=== PATIENT | female | born 1975 | race Caucasian/White ===

== ENCOUNTER 2021-09-16 09:14 | Emergency (ER) | payer OTHER, SELFPAY ==
--- NOTE | ~2021-09-16 | XR_ITS ---
EXAMINATION: XR CHEST CLINICAL INFORMATION: Cough. COMPARISON: None. TECHNIQUE: 2 views of the chest were obtained. FINDINGS: No significant abnormality is noted involving the heart, lungs, mediastinum, bony thorax or soft tissues. XR/XR chest 2V IMPRESSION: Unremarkable examination.
[2021-09-16 09:41] VITALS: BP 154/94; PULSE 93; RESP 19; TEMP 36.6; O2SAT 98; BMI 39.0
[2021-09-16 10:22] LABS: COVID-19 Test Negative (Negative); IDNOW Serial# 9DD0AD1C
--- NOTE | 2021-09-16 11:17 | ED.URI ---
HPI - URI/Sore Throat General Chief Complaint: Upper Respiratory Symptoms Stated Complaint: dry cough Time Seen by Provider: 09/16/21 11:17 Source: patient Mode of arrival: ambulatory Limitations: no limitations History of Present Illness HPI Narrative: For about a week she has had a cough and feels that she has pneumonia. No fever. No wheezing MD elicited complaint: cough Onset (ago): week(s) Consistency: intermittent Severity: mild Exacerbating factors: nothing Relieving factors: nothing Associated symptoms: denies other symptoms Related Data Previous Rx's Medication Instructions Recorded azithromycin 250 mg tablet See Rx Instructions .ROUTE 09/16/21 .COMPLEX #6 tab [id number] 2.5 20 ml PO Q4H PRN #118 ml 09/16/21 mg-5 mg-50 mg/5 mL oral liquid (Robitussin Cough and Cold CF) Allergies Allergy/AdvReac Type Severity Reaction Status Date / Time No Known Allergies Allergy Verified 09/16/21 11:31 Review of Systems Constitutional: Constitutional: Reports no additional constitutional complaints Eyes: Eyes: Reports no additional eye complaints ENT: Denies dizziness Cardiovascular: Cardiovascular: Reports no additional cardiovascular complaints Respiratory: Respiratory: Reports as per HPI Gastrointestinal: Gastrointestinal: Reports no additional gastrointestinal complaints Genitourinary: Genitourinary: Reports no additional female genitourinary complaints Musculoskeletal: Musculoskeletal: Reports no additional musculoskeletal complaints Integumentary/Breasts: Skin/Breast: Denies rash Neurologic: Reports system reviewed and no additional complaints, except as documented, Denies dizziness and Denies Sensory deficit (Neuro) Psychiatric: Psychiatric: Denies anxiety FOR[facility]LY [facility], [facility] Past Medical History Medical History HTN (hypertension) Social History Social History Advance Directives: No Advance Directives Information Provided: No Patient : No Physical Exam Vital Signs: Vital Signs: Last Vital Signs Temp 98 F 09/16/21 09:41 Pulse 93 09/16/21 09:41 Resp 19 09/16/21 09:41 BP 154/94 H 09/16/21 09:41 Pulse Ox 98 09/16/21 09:41 BMI result Body Mass Index 39.0 Const: General: healthy appearing Nutritional Appearance: average body habitus Orientation/consciousness: oriented to person and patient oriented x3 Limitations: no limitations HENMT: Head: Yes normal to inspection Ears: external ears normal General nose exam: Normal external nose present Mouth: Normal oral and palatal mucosa present and oropharynx normal Throat: Yes posterior oropharynx normal Eyes: General: appearance normal, both eyes and all related structures Neck: Other: supple Neck: Yes normal visual inspection Chest: Chest palpation & inspection: normal inspection of the chest Resp: Other: some rhonchi bilaterally with green phlegm Cardio: Jugular venous distension: no JVD Rate: regular rate Rhythm: regular rhythm Heart sounds: S1 normal heart sound present and S2 normal heart sound present GI: Inspection: Yes normal to inspection Palpation (GI): Soft to palpation, nontender and No hepatosplenomegaly present Auscultation: normal bowel sounds : General: Yes no CVA tenderness Back/Spine/Pelvis: Back: no CVA tenderness Skin: General skin exam: no rashes or lesions noted Neuro: General: oriented to person and patient oriented x3 Cranial nerves: Yes CN's II-XII intact bilaterally Motor exam (neuro): 5/5 motor strength present throughout Sensory Exam: No Sensory deficit (Neuro) Extrem: General: Yes normal to inspection Psych: Appearance: grossly normal Course Reevaluation(s) Reevaluation #1: patient with shortness of breath for weeks now with green sputum will place on a zpack Time: 11:39 MDM - URI/Sore Throat Lab Data Labs: Lab Results 09/16/21 Range/Units 09:44 COVID-19 (ELISE) Negative (Negative) COVID-19 Clin Com See Note Imaging Data Chest x-ray: Radiologist's impression: FINDINGS: No significant abnormality is noted involving the heart, lungs, mediastinum, bony thorax or soft tissues. XR/XR chest 2V IMPRESSION: Unremarkable examination Discharge Plan Discharge Clinical Impression: Bronchitis, Upper respiratory infection Patient Disposition: Home, Self-Care Instructions: Acute Bronchitis (ED) Prescriptions: New azithromycin 250 mg tablet See Rx Instructions .ROUTE .COMPLEX Qty: 6 RF: 0 Robitussin Cough and Cold CF 2.5-5-50 mg/5 mL liquid 20 ml PO Q4H PRN (Reason: cough) Qty: 118 RF: 0 Referrals: Richelle Cary MD [Primary Care Provider] - 1 week
--- NOTE | 2021-09-16 11:57 | PC.NURSE ---
PT EVALUATED BY DR BUSBY. PT AWARE AND AGREEABLE TO ED CARE PLAN. PT AWAKE, ALERT AND ORIENTED X 3. SKIN WARM AND DRY. RESP UNLABORED. SPEAKING IN FULL CLEAR SENTENCES.
== END 2021-09-16 11:47 | disposition home or self-care (01) ==
PROVIDERS: Emergency Provider Emergency Medicine; PCP Family Medicine
DX: J40 Bronchitis, not specified as acute or chronic (principal); J06.9 Acute upper respiratory infection, unspecified; Z20.822 Contact with and (suspected) exposure to COVID-19
CPT/HCPCS: 71046; 87635; 99283

== ENCOUNTER 2023-04-09 11:00 | Outpatient (AMB) | payer OTHER, SELFPAY ==
[2023-04-09 11:11] VITALS: BP 118/78; PULSE 93; TEMP 36.8; O2SAT 97; BMI 38.2
--- NOTE | 2023-04-09 11:11 | A.OFFVIS_ITS ---
Intake Vital Signs 04/09/23 11:11 Height 5 ft 5 in Weight 229 lb 4.492 oz BMI 38.2 BP 118/78 Blood Pressure Location Lt brachial Position Sitting Pulse 93 Pulse Source Pulse Oximeter Temp 98.2 F Pulse Oximetry (%) 97 Oxygen Delivery Method Room Air Intake Visit Reasons: RA Intake Note: Pt presents in office for RA Skip Locator Required: No Allergies No Known Allergies Allergy (Verified 04/09/23 11:15) Medication List - Last Reconciled 04/09/23 by Nicci Ceballos MD diclofenac sodium 1% grams topical QID PRN hydrochlorothiazide 25 mg PO DAILY lisinopril 5 mg PO DAILY melatonin 5 mg PO BEDTIME PRN metformin ER 500 mg PO DAILY HPI HPI Comments History of Present Illness Details This is a 48-year-old female who presents for evaluation of multiple donte int pain. The condition started back in September of 2022 when the patient noticed joint pain and stiffness affecting her left shoulder, right elbow, both wrists, intermittently associated with swelling. The pain and swelling with amanda in severity. She had this pain for 6-7 months and over the last 3-4 weeks it has been slowly improving. She denied any prior respiratory or GI infection. Today patient denies any symptoms. She denies any joint pain. Denies any history of DVT/PE. She is unaware of any family history of autoimmune rheumatic disease. [facility] Medical History (Updated 04/09/23 @ 13:15 by Nicci Ceballos MD) HTN (hypertension) Hyperglycemia Newly diagnosed diabetes Obstructive sleep apnea syndrome Rheumatoid factor positive Surgical History History of total hysterectomy Hx of LASIK Family History Mother Cancer Social History Alcohol intake: never Patient Tobacco Use Status: Never used Tobacco Review of Systems [facility] [place] Denies arthralgias Skin/Breast Denies rash Physical Exam Vital Signs: Last Vital Signs Temp 98.2 F 04/09/23 11:11 Pulse 93 04/09/23 11:11 BP 118/78 04/09/23 11:11 Pulse Ox 97 04/09/23 11:11 Oxygen Delivery Method Room Air 04/09/23 11:11 BMI result Body Mass Index 38.2 Const General: cooperative, healthy appearing and comfortable Nutritional Appearance: obese morbidly obese Orientation/consciousness: patient oriented x3 Limitations: no limitations HEENT Head: Yes normocephalic and Yes atraumatic Resp Effort & Inspection: normal respiratory effort and able to speak in complete sentences Auscultation: clear to auscultation bilaterally Cardio Rate: regular rate Rhythm: regular rhythm GI Inspection: No distended Palpation (GI): Soft to palpation and nontender Skin General skin exam: no rashes or lesions noted Neuro General: patient oriented x3 Extrem Other: No active synovitis. No swollen or tender joints Normal range of motion of shoulders, elbows, hands, wrists Normal nailfold capillaroscopy Assessment & Plan Assessment & Plan (1) Inflammatory arthritis: Code(s): M19.90 - Unspecified osteoarthritis, unspecified site Plan: This is a 48-year-old female who presents for evaluation of multiple joint pain that started in September 2022 at lasted for 6 months then self-resolved. Clinical picture consistent with an inflammatory arthritis, potentially RA versus psoriatic arthritis. Patient doing well today however with no Will check x-rays of involved joints. Check labs before next visit Plan I spent 46 minutes reviewing patient's chart, evaluating patient, ordering diagnostic workup, counseling patient and documenting in the chart Orders: Orders XR foot LT min 3V Today M06.9 - Rheumatoid arthritis, unspecified XR foot RT min 3V Today M06.9 - Rheumatoid arthritis, unspecified XR hand wrist LT Today M06.9 - Rheumatoid arthritis, unspecified XR hand wrist RT Today M06.9 - Rheumatoid arthritis, unspecified XR shoulder LT min 2V Today M06.9 - Rheumatoid arthritis, unspecified XR shoulder RT min 2V Today M06.9 - Rheumatoid arthritis, unspecified Cyclic Citrullinated Peptide 2 Months M06.9 - Rheumatoid arthritis, unspecified Comprehensive Met. Panel 2 Months M06.9 - Rheumatoid arthritis, unspecified C Reactive Protein 2 Months M06.9 - Rheumatoid arthritis, unspecified Rheumatoid Factor 2 Months M06.9 - Rheumatoid arthritis, unspecified Complete Blood Count Auto Diff 2 Months M06.9 - Rheumatoid arthritis, unspecified Erythrocyte Sedimentation Rate 2 Months M06.9 - Rheumatoid arthritis, unspecified JUDE Reflex Titer and Pattern 2 Months M06.9 - Rheumatoid arthritis, unspecified Immunofixation Pnl, Serum 2 Months M06.9 - Rheumatoid arthritis, unspecified Protein Electrophoresis, Serum 2 Months M06.9 - Rheumatoid arthritis, unspecified Hepatitis A,B,C Profile 2 Months Z11.59 - Encounter for screening for other viral diseases T Spot TB 2 Months Z11.7 - Encounter for testing for latent tuberculosis infection Coding Level of Care Code New Pt Level 4 (38145) Diagnoses Inflammatory arthritis M19.90
== END 2023-04-09 11:57 | disposition home or self-care (01) ==
PROVIDERS: PCP Family Medicine; Visit Provider Student in an Organized Health Care Education/Training Program
DX: M19.90 Unspecified osteoarthritis, unspecified site (principal)
CPT/HCPCS: 99204

== ENCOUNTER 2023-04-09 11:00 | Outpatient (REF) | payer OTHER, SELFPAY ==
--- NOTE | ~2023-04-09 | XR_ITS ---
EXAMINATION: XR foot LT min 3V, XR foot RT min 3V CLINICAL INFORMATION: Rheumatoid arthritis COMPARISON: None. TECHNIQUE: 3 views of the right foot. 3 views of the left foot. FINDINGS: Right foot: No fracture or dislocation. Alignment is maintained. Joint spaces are maintained. No osseous erosions. No ankle joint effusion. Soft tissues appear unremarkable. Left foot: No fracture or dislocation. Alignment is maintained. Joint spaces are maintained. No osseous erosions. No ankle joint effusion. The soft tissues are unremarkable. XR/XR foot LT min 3V IMPRESSION: Normal appearance of both feet. No osseous erosions.
--- NOTE | ~2023-04-09 | XR_ITS ---
EXAMINATION: XR hand wrist LT, XR hand wrist RT CLINICAL INFORMATION: Rheumatoid arthritis COMPARISON: None. TECHNIQUE: 3 views of the right hand with scaphoid view. 3 views of the left hand with scaphoid view. FINDINGS: Right hand/wrist: No fracture or dislocation. Carpal rows are well aligned. Negative ulnar variance of 0.3 cm. Joint spaces are maintained throughout the hand. No osseous erosions. No subluxation. Soft tissues appear unremarkable. Left hand/wrist: No fracture or dislocation. Carpal rows are well aligned. Negative ulnar variance of 0.2 cm. Cyst formation noted in the scaphoid. Joint spaces maintained throughout the hand. No osseous erosions. No subluxation. The soft tissues are unremarkable. XR/XR hand wrist RT IMPRESSION: No acute abnormality. No osseous erosions. Negative ulnar variance. Cyst formation in the left scaphoid.
--- NOTE | ~2023-04-09 | XR_ITS ---
EXAMINATION: XR hand wrist LT, XR hand wrist RT CLINICAL INFORMATION: Rheumatoid arthritis COMPARISON: None. TECHNIQUE: 3 views of the right hand with scaphoid view. 3 views of the left hand with scaphoid view. FINDINGS: Right hand/wrist: No fracture or dislocation. Carpal rows are well aligned. Negative ulnar variance of 0.3 cm. Joint spaces are maintained throughout the hand. No osseous erosions. No subluxation. Soft tissues appear unremarkable. Left hand/wrist: No fracture or dislocation. Carpal rows are well aligned. Negative ulnar variance of 0.2 cm. Cyst formation noted in the scaphoid. Joint spaces maintained throughout the hand. No osseous erosions. No subluxation. The soft tissues are unremarkable. XR/XR hand wrist LT IMPRESSION: No acute abnormality. No osseous erosions. Negative ulnar variance. Cyst formation in the left scaphoid.
--- NOTE | ~2023-04-09 | XR_ITS ---
EXAMINATION: XR SHOULDER, RIGHT CLINICAL INFORMATION: Rheumatoid arthritis, unspecified COMPARISON: None available. TECHNIQUE: AP external rotation, Grashey, scapular Y, and axillary views of the right shoulder. FINDINGS: The bones are intact. No fracture. Glenohumeral and acromioclavicular alignment is anatomic with normal joint space. No abnormal soft tissue calcifications. XR/XR shoulder RT min 2V IMPRESSION: No bony abnormality.
--- NOTE | ~2023-04-09 | XR_ITS ---
EXAMINATION: XR foot LT min 3V, XR foot RT min 3V CLINICAL INFORMATION: Rheumatoid arthritis COMPARISON: None. TECHNIQUE: 3 views of the right foot. 3 views of the left foot. FINDINGS: Right foot: No fracture or dislocation. Alignment is maintained. Joint spaces are maintained. No osseous erosions. No ankle joint effusion. Soft tissues appear unremarkable. Left foot: No fracture or dislocation. Alignment is maintained. Joint spaces are maintained. No osseous erosions. No ankle joint effusion. The soft tissues are unremarkable. XR/XR foot RT min 3V IMPRESSION: Normal appearance of both feet. No osseous erosions.
--- NOTE | ~2023-04-09 | XR_ITS ---
EXAMINATION: XR SHOULDER, LEFT CLINICAL INFORMATION: Rheumatoid arthritis, unspecified COMPARISON: None available. TECHNIQUE: AP external rotation, Grashey, scapular Y, and axillary views of the left shoulder. FINDINGS: The bones are intact. No fracture. Glenohumeral and acromioclavicular alignment is anatomic with normal glenohumeral joint space. Minimal degenerative change of the acromioclavicular joint. Small calcific density adjacent to the humeral head is consistent with calcific tendinitis. XR/XR shoulder LT min 2V IMPRESSION: Calcific tendinitis.
== END 2023-04-09 11:01 | disposition home or self-care (01) ==
LOC: HO.XRAY 11:00
PROVIDERS: PCP Family Medicine; Visit Provider Student in an Organized Health Care Education/Training Program
DX: M06.9 Rheumatoid arthritis, unspecified (principal); M19.90 Unspecified osteoarthritis, unspecified site
CPT/HCPCS: 73030; 73110; 73130; 73630; 99202

== ENCOUNTER 2023-05-28 09:09 | Outpatient (REF) | payer OTHER, SELFPAY ==
[2023-05-28 10:43] LABS: MANUAL DIFF FLAG NO
[2023-05-28 10:51] LABS: Basophils Absolute Auto 0.1 X10*3/uL (0.0-0.2); Basophils Percent Auto 0.6 % (0-2); Eosinophils Absolute Auto 0.1 X10*3/uL (0.0-0.4); Eosinophils Percent Auto 0.9 % (0-4); Hematocrit 38.9 % (37.0-47.0); Hemoglobin 12.8 g/dl (12.0-16.0); Imm Gran Abs Auto 0.03 X10*3/uL (0.00-0.03); Imm Gran Pct Auto 0.4 % (0.0-0.4); Lymphocytes Absolute Auto 2.3 X10*3/uL (1.2-4.9); Lymphocytes Percent Auto 29.7 % (20-40); Mean Corpuscular HGB Conc 32.9 g/dl (31.0-35.0); Mean Corpuscular Hemoglobin 28.8 pg (27.0-33.0); Mean Corpuscular Volume 87.6 fL (80.0-98.0); Mean Platelet Volume 11.5 fL (9.4-12.3); Monocytes Absolute Auto 0.4 X10*3/uL (0.1-1.2); Monocytes Percent Auto 4.7 % (2-11); Neutrophils Percent Auto 63.7 % (45-73); Platelet Count 291 X10*3/uL (160-400); Red Blood Count 4.44 X10*6/uL (4.20-5.50); Red Cell Distribution Width 13.7 % (11.0-16.0); White Blood Count 7.8 X10*3/uL (4.8-10.8)
[2023-05-28 10:59] LABS: Alanine Aminotransferase 24 U/L (0-31); Albumin Level 4.2 g/dL (3.5-5.0); Alkaline Phosphatase 55 U/L (39-117); Anion Gap 12 (12-20); Aspartate Amino Transferase 15 U/L (5-31); Bilirubin Total 0.4 mg/dL (0.0-1.0); Blood Urea Nitrogen 13 mg/dL (9-16); C Reactive Protein 1.08 mg/dL (< or = 0.50); Calcium 9.7 mg/dL (8.4-10.2); Carbon Dioxide 27 mmol/L (22-29); Chloride 104 mmol/L (96-108); Estimated Glomerular Filt Rate > 60; Glucose Random 142 mg/dL (60-115); Potassium 4.1 mmol/L (3.3-5.1); Sodium 139 mmol/L (135-145); Total Protein 7.7 g/dL (6.5-8.0)
[2023-05-28 11:00] LABS: Rheumatoid Factor < 13.0 IU/mL (<15.0)
[2023-05-28 11:24] LABS: HBS Num1 6.73 mIU/mL (0-7.99); HBc Num1 6.69 S/CO (0.00-0.79); HBsAGNum1 0.29 S/CO (0.00-0.99); Hepatitis A Antibody IgM 0.43 Index (0-0.79); Hepatitis B Surface Antigen Negative (Negative); ~HepC Num1 0.06 S/CO (0.00-0.79); ~Hepatitis A Antibody IgM Nonreactive (Nonreactive); ~Hepatitis B Surface Antibody NONREACTIVE (Nonreactive); ~Hepatitis C Antibody Nonreactive (Nonreactive)
[2023-05-28 11:29] LABS: Erythrocyte Sedimentation Rate 20 MM/HR (0-20)
[2023-05-28 15:00] LABS: HBc Num2 6.34 S/CO; HBc Num3 6.38 S/CO; Hepatitis B Core Antibody Reactive (Nonreactive)
[2023-05-30 07:29] LABS: Hepatitis B Core Antibody IgM NON-REACTIVE (NON-REACTIVE)
[2023-05-30 14:18] LABS: Prot Elec - Albumin 4.1 g/dL (3.8-4.8); Prot Elec - Alpha1 0.3 g/dL (0.2-0.3); Prot Elec - Alpha2 0.6 g/dL (0.5-0.9); Prot Elec - Beta 1 0.5 g/dL (0.4-0.6); Prot Elec - Beta 2 0.4 g/dL (0.2-0.5); Prot Elec - Gamma 1.3 g/dL (0.8-1.7); Prot Elec - Total Protein 7.2 g/dL (6.1-8.1)
[2023-05-30 16:28] LABS: TS Negative Control Passed; TS Panel A 0; TS Panel B 1; TS Positive Control Passed; TSpotTB Negative (Negative)
[2023-06-01 16:18] LABS: Cyclic Citrullinated Peptide <16 UNITS
[2023-06-02 12:28] LABS: Anti Nuclear Antibody Screen NEGATIVE (NEGATIVE)
[2023-06-02 16:58] LABS: IgA 194 mg/dL (47-310); IgG 1549 mg/dL (600-1640); IgM 162 mg/dL (50-300)
== END 2023-05-28 09:10 | disposition home or self-care (01) ==
LOC: HO.10HDL 09:09
PROVIDERS: Visit Provider Student in an Organized Health Care Education/Training Program
DX: M06.9 Rheumatoid arthritis, unspecified (principal); Z11.7 Encounter for testing for latent tuberculosis infection; Z11.59 Encounter for screening for other viral diseases
CPT/HCPCS: 36415; 80053; 82784; 84165; 85025; 85652; 86038; 86140; 86200; 86334; 86431; 86481; 86704; 86705; 86706; 86709; 86803; 87340

== ENCOUNTER 2023-06-11 10:09 | Outpatient (AMB) | payer OTHER, SELFPAY ==
[2023-06-11 10:12] VITALS: BP 136/74; PULSE 84; TEMP 36.7; O2SAT 97; BMI 37.4
--- NOTE | 2023-06-11 10:12 | MHC.OFFVIS ---
Intake Vital Signs 06/11/23 10:12 Height 5 ft 5 in Weight 224 lb 10.417 oz BMI 37.4 BP 136/74 Blood Pressure Location Rt brachial Position Sitting Pulse 84 Pulse Source Pulse Oximeter Temp 98.1 F Temp Source Skin Pulse Oximetry (%) 97 Intake Visit Reasons: 2 mnts f/u for RA Intake Note: Pt seen today for RA follow up and test results. Reports intermittent increased joint pain. 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 States that she feels better overall. She would get 1 day history of joint pain that migrates between her left ankle, left elbow, left shoulder, it lasts 1-2 days, rapidly resolved with Voltaren gel. She states that these episodes are so few and far in between, not associated with swelling. Initial history: This is a 48-year-old female who presents for evaluation of multiple joint pain. The condition started back in September of 2022 when the patient noticed joint pain and stiffness affecting her left shoulder, right elbow, both wrists, intermittently associated with swelling. The pain and swelling with amanda in severity. She had this pain for 6-7 months and over the last 3-4 weeks it has been slowly improving. She denied any prior respiratory or GI infection. Today patient denies any symptoms. She denies any joint pain. Denies any history of DVT/PE. She is unaware of any family history of autoimmune rheumatic disease. [facility] Medical History (Updated 06/11/23 @ 10:35 by Nicci Ceballos MD) Hyperglycemia Rheumatoid factor positive Obstructive sleep apnea syndrome Newly diagnosed diabetes HTN (hypertension) Surgical History Hx of LASIK History of total hysterectomy Family History Mother Cancer Social History Alcohol intake: never Patient Tobacco Use Status: Never used Tobacco Review of Systems [facility] Reports arthralgias and Denies joint swelling Physical Exam Vital Signs: Last Vital Signs Temp 98.1 F 06/11/23 10:12 Pulse 84 06/11/23 10:12 BP 136/74 06/11/23 10:12 Pulse Ox 97 06/11/23 10:12 BMI result Body Mass Index 37.4 Const General: cooperative, healthy appearing and comfortable Nutritional Appearance: obese morbidly obese Orientation/consciousness: patient oriented x3 Limitations: no limitations HEENT Head: Yes normocephalic and Yes atraumatic Resp Effort & Inspection: normal respiratory effort and able to speak in complete sentences Skin General skin exam: no rashes or lesions noted Neuro General: patient oriented x3 Extrem Other: No active synovitis. No swollen or tender joints Normal range of motion of shoulders, elbows, hands, wrists Positive empty can test on the left Normal nailfold capillaroscopy Assessment & Plan Assessment & Plan (1) Polyarthralgia: Code(s): M25.50 - Pain in unspecified joint Plan: This is a 48-year-old female who presents for evaluation of multiple joint pain that started in September 2022 at lasted for 6 months then self-resolved.? Currently she gets very rare episode of migratory joint pain that lasts 1 day in each joint. There is no active synovitis on exam, comprehensive serology is negative, CRP is mildly elevated and can be within her normal range for her weight. X-rays do not show any signs of inflammatory arthropathy. Clinical picture suspicious for an inflammatory arthritis that seems to have self-resolved. Advised patient to follow-up new or recurrent symptoms (2) Tendinopathy of left rotator cuff: Code(s): M67.912 - Unspecified disorder of synovium and tendon, left shoulder Plan: Patient not interested in physical therapy. I gave patient a printout of home exercises to do Plan I spent 26 minutes reviewing patient's chart, evaluating patient, counseling patient and documenting in the chart Coding Level of Care Code Est Pt Level 4 (65919) Diagnoses Polyarthralgia M25.50 Tendinopathy of left rotator cuff M67.912
== END 2023-06-11 10:32 | disposition home or self-care (01) ==
PROVIDERS: PCP Family Medicine; Visit Provider Student in an Organized Health Care Education/Training Program
DX: M25.50 Pain in unspecified joint (principal); M67.912 Unspecified disorder of synovium and tendon, left shoulder
CPT/HCPCS: 99214

== ENCOUNTER → 2023-06-11 10:09 | Outpatient (BNVA) | payer OTHER, SELFPAY | PROVIDERS: PCP Family Medicine; Visit Provider Student in an Organized Health Care Education/Training Program | DX: M25.50 Pain in unspecified joint (principal); M67.912 Unspecified disorder of synovium and tendon, left shoulder | CPT/HCPCS: 99212 ==

== ENCOUNTER 2025-03-31 17:31 | Emergency (ER) | payer OTHER, SELFPAY ==
--- NOTE | ~2025-03-31 | XR_ITS ---
CLINICAL HISTORY: pain 2 view right forearm Comparison: None provided Findings: No fractures or dislocations. No joint effusion. No significant arthritic change. No radiopaque foreign body. IMPRESSION: 1. Normal right forearm This document has been electronically signed by: Valeri Sanchez MD on 03/31/2025 18:18:32
[2025-03-31 17:42] VITALS: BP 138/66; PULSE 75; RESP 17; TEMP 36.7; O2SAT 98; BMI 36.8
--- NOTE | 2025-03-31 17:46 | ED.EXTPRO ---
HPI - Extremity Problem General Chief complaint: Extremity Injury, Upper Stated complaint: right arm & hand pain Time Seen by Provider: 03/31/25 19:50 Source: patient, RN notes reviewed and old records reviewed Mode of arrival: ambulatory Limitations: no limitations History of Present Illness ED Provider: Ricky HPI Narrative: 50-year-old female presents for evaluation of pain to her right forearm. She reports initially having pain about 1 month ago while raking soil. Today while using a stapler she had increased pain to the right forearm. Denies any swelling, fevers, chills pain She denies IV drug abuse. She has full range of motion to the wrist and elbow. She reports squeezing her fingers causes pain in the right forearm Related Data Home Medications ?Medication ?Instructions ?Recorded ?Confirmed diclofenac sodium 1 % topical gel g topical QID PRN chronic pain 03/31/23 hydrochlorothiazide 25 mg tablet 25 mg PO DAILY 03/31/23 lisinopril 5 mg tablet 5 mg PO DAILY 03/31/23 melatonin 5 mg tablet 5 mg PO BEDTIME PRN insomnia 03/31/23 metformin 500 mg tablet,extended 500 mg PO DAILY 03/31/23 release 24 hr multivitamin 1 tab PO DAILY 06/11/23 Allergies Allergy/AdvReac Type Severity Reaction Status Date / Time No Known Allergies Allergy Verified 03/31/25 17:44 Review of Systems Constitutional: Constitutional: Denies body ache(s), Denies chills, Denies fever(s), Denies frequent falls and Denies headache(s) ENT: Denies dry mouth, Denies ear discharge and Denies headache(s) Cardiovascular: Cardiovascular: Denies chest pain and Denies dyspnea on exertion Respiratory: Respiratory: Denies cough and Denies dyspnea on exertion Gastrointestinal: Gastrointestinal: Denies abdominal pain, Denies nausea and Denies vomiting Musculoskeletal: Musculoskeletal: Denies arthralgias, Denies joint swelling, Denies limited range of motion, Reports muscle cramps and Reports radiating pain into limb Integumentary/Breasts: Skin/Breast: Denies rash Neurologic: Denies frequent falls and Denies headache(s) [facility] Past Medical History Medical History (Updated 03/31/25 @ 19:59 by Sabino García) Hyperglycemia Rheumatoid factor positive Obstructive sleep apnea syndrome Newly diagnosed diabetes HTN (hypertension) Surgical History Hx of STEVEIK History of total hysterectomy Family History Family History Mother Cancer Social History Social History Alcohol intake: never Patient Tobacco Use Status: Never used Tobacco Advance Directives: No Advance Directives Information Provided: No Do you have a plan to hurt others: No Plan Physical Exam Vital Signs: Vital Signs: Last Vital Signs Temp 98.1 F 03/31/25 20:06 Pulse 75 03/31/25 20:06 Resp 17 03/31/25 20:06 BP 138/66 03/31/25 20:06 Pulse Ox 98 03/31/25 20:06 O2 Del Method Room Air 03/31/25 20:06 BMI result Body Mass Index 36.8 Const: General: healthy appearing, comfortable, no acute distress, alert and awake Nutritional Appearance: well nourished Orientation/consciousness: patient oriented x3 HEENT: Head: Yes normocephalic and Yes atraumatic Eyes: Eyelids: Yes eyelids normal Conjunctivae: conjunctivae normal Sclerae: sclerae normal Corneas: corneas normal Pupils: Equal, round and reactive pupils present EOM: EOMs intact bilaterally Neck: Neck: Yes full ROM Resp: Effort & Inspection: normal respiratory effort, able to speak in complete sentences and not labored Cardio: Rate: regular rate Rhythm: regular rhythm Skin: General skin exam: elasticity normal Neuro: General: patient oriented x3 Cranial nerves: Yes Equal, round and reactive pupils present and Yes Bilaterally intact EOM present Cognition (Neuro): normal cognition Extrem: Other: There was no deformity to the right upper extremity including the shoulder, elbow, wrist. She has some tenderness to palpation right forearm without overlying skin changes, no erythema, no edema. No palpable cords. Radial pulses 2+ and equal. Negative Tinel sign. Course Course Course Narrative: RME, this is a rapid medical exam performed by Rick García please refer to primary provider for complete H&P- 50-year-old female presents for evaluation of right forearm pain. Her pain started about 1 month ago but then worsened today while she was raking. She reports hearing a crunch. Plan for x-rays Medical Decision Making Medical Decision Making MDM Narrative: 50-year-old female presents for evaluation of right forearm pain. This happened while raking and then again while using a stapler. Most likely diagnosis is a muscle strain as this was caused by activity. There was no evidence of infectious process, no wounds. No joint pain or swelling, no reduced range of motion. Therefore less likely tick-borne disease, less likely gout. X-rays negative for fracture or foreign body. Plan to treat with symptomatic care only and she will be referred to Orthopedics. Differential Diagnosis Differential Diagnoses: The differential diagnosis associated with the presentation includes Right arm pain Contusion Muscle strain DVT Gout Independent Interpretation I performed an independent interpretation of an: Plain X-Ray Interpretation: No foreign body or fracture Radiology Impression Discussion of test interpretation with radiology: I have reviewed the radiologist's reading. Radiologist Impression: Findings: No fractures or dislocations. No joint effusion. No significant arthritic change. No radiopaque foreign body. IMPRESSION: 1. Normal right forearm This document has been electronically signed by: Valeri Sanchez MD on 03/31/2025 18:18:32 Discharge Plan Discharge Clinical Impression: Arthralgia of right forearm Patient Disposition: Home, Self-Care Instructions: Arm Pain (ED) Additional Instructions: You may use ibuprofen or Tylenol for pain. Your x-ray does not show any fracture or dislocation. I think you have a strain to a muscle in your right forearm. Usually warm compresses is help for for muscle strains to relax in the muscle You may follow up with Orthopedics if your symptoms are not improving Prescriptions: No Action multivitamin Tablet 1 tab PO DAILY hydrochlorothiazide 25 mg tablet 25 mg PO DAILY lisinopril 5 mg tablet 5 mg PO DAILY melatonin 5 mg tablet 5 mg PO BEDTIME PRN (Reason: insomnia) diclofenac sodium 1 % gel topical QID PRN (Reason: chronic pain) metformin 500 mg tablet extended release 24 hr 500 mg PO DAILY Referrals: [facility] Orthopedic Surgeons [Provider Group] Referral Note: right forearm pain for a month, negative x-rays Interventions: ED Discharge Assessment Last Done: 03/31/25 20:06 Discharge Date/Time: 03/31/25 20:09 Print Language: Tristanian
[2025-03-31 20:06] VITALS: BP 138/66; PULSE 75; RESP 17; TEMP 36.7; O2SAT 98
== END 2025-03-31 20:09 | disposition home or self-care (01) ==
LOC: HO.ED 20:06
PROVIDERS: Emergency Provider Internal Medicine
DX: M25.521 Pain in right elbow (principal); M79.631 Pain in right forearm; Z79.899 Other long term (current) drug therapy
CPT/HCPCS: 73090; 99282; 99283

== ENCOUNTER → 2025-03-31 17:46 | Outpatient (BNV) | payer OTHER, SELFPAY | PROVIDERS: Visit Provider Radiology Diagnostic Radiology | DX: M79.631 Pain in right forearm (principal) | CPT/HCPCS: 73090 ==

== ENCOUNTER 2025-04-25 08:22 | Outpatient (AMB) | payer OTHER, SELFPAY ==
[2025-04-25 08:26] VITALS: BMI 36.6
--- NOTE | 2025-04-25 08:26 | A.OFFVIS_ITS ---
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 Patient was seen at [facility] ED on 03/31/25 where she expressed her pain initially began a few months before ED visit after raking soil. While at the ED, patient added her pain was exacerbated from using a stapler earlier in the day. Today, patient reports pain has improved however she feels her muscles are tight on the lateral aspect of the right forearm. She states if she tries carrying something, the dorsal aspect of the forearm hurts. She is not taking anything for pain at this time. Denies numbness, tingling, finger locking. Denies prior injuries or surgeries to the hands or arm. 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 Patient was seen at [facility] ED on 03/31/25 where she expressed her pain initially began a few months before ED visit after raking soil. While at the ED, patient added her pain was exacerbated from using a stapler earlier in the day. Today, patient reports pain has improved however she feels her muscles are tight on the lateral aspect of th e right forearm. She states if she tries carrying something, the dorsal aspect of the forearm hurts. Patient states that this pain originates in the lateral part of the elbow, and radiates into the forearm. She is not taking anything for pain at this time. Denies numbness, tingling, finger locking. Denies prior injuries or surgeries to the hands or arm. 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 Review of Systems Const All systems reviewed & are unremarkable except as noted in HPI and below Physical Exam Vital Signs: BMI result Body Mass Index 36.6 Extrem Other: Patient's right elbow normal to inspection No erythema, ecchymosis, edema noted No lacerations, abrasions, open areas No evidence of infection Patient reports moderate tenderness to palpation of the right lateral epicondyle No tenderness to palpation of the medial epicondyle, olecranon process, radial head, or elsewhere in the right elbow Range of motion of the right elbow full and intact Positive Cozen's test on the right Distal sensation intact Capillary refill brisk Assessment & Plan Assessment & Plan (1) Lateral epicondylitis, right elbow: Code(s): M77.11 - Lateral epicondylitis, right elbow Category: Medical Plan 1. Lateral epicondylitis of right elbow Patient is educated about this condition Patient is educated about the typical treatment course, namely occupational therapy OT referral placed at this time Patient is also provided with a lateral epicondyle brace to be worn for symptomatic management Patient understands this and is amenable to this plan Follow-up as needed Orders: Orders OT Evaluation and Treatment Today M77.11 - Lateral epicondylitis, right elbow Coding Level of Care Code New Pt Level 3 (91506) Diagnoses Lateral epicondylitis, right elbow M77.11
--- OUTSIDE RECORDS SUMMARY | 2025-04-25 09:05 | XMS_ITS | Clinical Summary ---
Author Organization [address] Address [address] [place] [address] Phone Care Team Providers Care Historical Records Administrator Name Role Phone Gwendolyn Woods Primary Care Provider Encounters Date Type Department Care Team Description 03/30/2025 Telephone Obstetrics and Gynecology - [address] [phone] Pippa Kim MD Breast Problem 02/24/2025 9:38 AM EDT - 02/24/2025 11:59 PM EDT Hospital Encounter Radiology Department - [address] [phone] Encounter for screening mammogram for breast cancer Discharge Disposition: Home or Self Care from Last 3 Months Surgical History Surgery Date Site/Laterality Comments EYE SURGERY 1998 PROCEDURE: HISTORICAL EYE SURGERY; COMMENT: laser HYSTERECTOMY 05/13/2017 PROCEDURE: RI VAGINAL HYSTERECTOMY UTERUS 250 GM/<; COMMENT: 2nd to prolapse w normal pathology/ no history of abnormal papsmears Family History Medical History Relation Name Comments Other cancer Mother neck, age 31 Breast cancer Neg Hx Relation Name Status Comments Mother Alive Social History Tobacco Use Types Packs/Day Years Used Date Smoking Tobacco: Never Smokeless Tobacco: Never Alcohol Use Standard Drinks/Week Comments No 0 (1 standard drink = 0.6 oz pur e alcohol) Comments Unknown Sex and Gender Information Value Date Recorded Sex Assigned at Not on file Legal Sex Female 9:01 PM EST Gender Identity Not on file Sexual Orientation Not on file Obstetrics History Para Term AB IAB SAB Ectopic Multiple Livin g Live Births 3 2 2 1 1 2 2 Date Outcome GA Total Labor Labor/2nd/3rd Weight Sex Type Anes PTL Eugenie A1 A5 Name Clin 2001 Term 40w 0d 3005 g (106 oz) M Vag-S pont N Livin g 2011 SAB 2012 Term 40w 0d 3402 g (120 oz) M Vag-S pont Epidur al Livin g 7 9 Mohan Delivery Location:[facility] Last Filed Vital Signs Vital Sign Reading Time Taken Comments Blood Pressure 128/85 04/14/2023 9:13 AM EDT Pulse 105 12/31/2021 10:42 AM EDT Temperature - - Respiratory Rate - - Oxygen Saturation - - Inhaled Oxygen Concentration - - Weight 104 kg (230 lb) 04/14/2023 9:13 AM EDT Height 160 cm (5' 3 ) 04/14/2023 9:13 AM EDT Body Mass Index 40.74 04/14/2023 9:13 AM EDT Plan of Treatment Upcoming Encounters Date Type Department Care Team (Late st Contact Info) Description 05/04/2025 3:45 PM EDT Office Visit Obstetrics [facility]necology [facility] [address] [place] [phone] Shari Jasso DO [address] [place] [address] Health Maintenance Due Date Last Done Comments Diabetes: Annual GFR (Glomerular Filtration Rate) 1976 Diabetes: Annual Foot Exam 02/09/1986 Diabetes: Annual Retina Eye Exam 02/09/1986 Hepatitis B Vaccines (1 of 3 - 19+ 3-dose series) 02/09/1995 Cholesterol Screening (Lipid Panel) 08/16/2022 Colorectal Cancer Screening: Colonoscopy 08/16/2022 HIV Screening 08/16/2022 Hepatitis C Screening 08/16/2022 Social Influencers of Health Screening 08/16/2022 DTaP,Tdap,and Td Vaccines (2 - Td or Tdap) 12/21/2022 12/21/2012 Diabetes: Annual Urine Albumin-Creatinine Ratio (uACR) 10/21/2023 Diabetes: Blood Sugar Control Test (HGBA1C) 10/21/2023 Hypertension/CHF/CAD Annual BMP Blood Test 10/21/2023 Depression Screening 09/07/2024 Influenza Vaccine (#1) 2025 4, 06/17/2022, 06/20/2021, Additional history exists Breast Cancer Screening 02/24/2027 02/25/20, 02/15/2024, 01/30/2023, Additional history exists Varicella Vaccines Aged Out 01/15/2013 No longer eligible based on patient's age to complete this topic COVID-19 Vaccine Completed 07/23/2024, 04/2022, 10/17/2021, Additional history exists HIB Vaccines Aged Out No longer eligi ble based on patient's age to complete this topic HPV Vaccines Aged Out No longer eligi ble based on patient's age to complete this topic Hepatitis A Vaccines Aged Out No long er eligible based on patient's age to complete this topic IPV Vaccines Aged Out No longer eligi ble based on patient's age to complete this topic MMR Vaccines Aged Out No longer eligi ble based on patient's age to complete this topic Meningococcal ACWY Vaccine Aged Out N o longer eligible based on patient's age to complete this topic Meningococcal B Vaccine Aged Out No l onger eligible based on patient's age to complete this topic Pneumococcal Vaccine: Pediatrics (0 to 5 Years) and At-Risk Patients (6 to 49 Years) Aged Out No longer eligible based on patient's age to complete this topic RSV Immunization Patients Under 20 months Aged Out No longer eligible based on patient's age to complete this topic Procedures Procedure Name Priority Date/Time Associated Diagnosis Comments MG MAMMO DIGITAL SCREENING W RAYO BILAT Routine 02/24/2025 9:50 AM EDT Encounter for screening mammogram for breast cancer from Last 3 Months Results * MG Mammo Digital Screening w Rayo bilat (02/24/2025 9:50 AM EDT) Anatomical Region Laterality Modality Breast Bilateral Mammography 02/24/2025 11:4 5 AM EDT Impressions 02/24/2025 11:48 AM EDT BILATERAL BREASTS: Negative, no evidence of malignancy. Normal interval follow- up is recommended in 12 months. BREAST DENSITY: B - There are scattered areas of fibroglandular density. BI-RADS CATEGORY: 1 - NEGATIVE RECOMMENDATION: Screening bilateral mammogram is recommended in 1 year. Mammo Location: [facility], [address] [place] [address], [id number], . -------- FINAL REPORT -------- Dictated By: Koffi Seals Dictated Date: 02/24/2025 11:45 ET Assigned Physician: Koffi Seals Reviewed and Electronically Signed By: Koffi Seals Signed Date: 02/24/2025 11:48 ET Workstation ID: [id number] Transcribed By: Self Edit Transcribed Date: 02/24/2025 11:45 ET Narrative 02/24/2025 11:48 AM EDT STUDY: Bilateral screening mammography with tomosynthesis and CAD TECHNIQUE: Bilateral full-field digital screening mammography is obtained and read in conjunction with computer-aided detection. Tomosynthesis as well as 2-D C view imaging were obtained. COMPARISON: Comparison made to multiple prior, most recent February 15, 2024, and most remote March 03, 2017. BILATERAL BREASTS: No significant masses, suspicious calcifications or other abnormalities are seen in either breast. Procedure Note Koffi Seals MD - 02/24/2025 STUDY: Bilateral screening mammography with tomosynthesis and CAD TECHNIQUE: Bilateral full-field digital screening mammography is obtainedand read in conjunction with computer-aided detection. Tomosynthesis aswell as 2-D C view imaging were obtained. COMPARISON: Comparison made to multiple prior, most recent February 15, 2024,and most remote March 03, 2017. BILATERAL BREASTS: No significant masses, suspicious calcifications orother abnormalities are seen in either breast. IMPRESSION: BILATERAL BREASTS: Negative, no evidence of malignancy. Normal intervalfollow-up is recommended in 12 months. BREAST DENSITY: B - There are scattered areas of fibroglandular density. BI-RADS CATEGORY: 1 - NEGATIVE RECOMMENDATION: Screening bilateral mammogram is recommended in 1 year. Mammo Location: [facility], [address] [place] [address], [phone], . -------- FINAL REPORT -------- Dictated By: Koffi Seals Dictated Date: 02/24/2025 11:45 ET Assigned Physician: Koffi Seals Reviewed and Electronically Signed By: Koffi Seals Signed Date: 02/24/2025 11:48 ET Workstation ID: [id number] Transcribed By: Self Edit Transcribed Date: 02/24/2025 11:45 ET us Gwendolyn TAN IMG BI PROCEDURES Final Resu lt from Last 3 Months Insurance [facility] MEDICAID ADVANTAGE Care Teams Historical Records Administrator Relationship Specialty Start Date End Date Gwendolyn Woods PA [address] [place] [id number] PCP - General Record Clerk 02/24/25
== END 2025-04-25 08:55 | disposition home or self-care (01) ==
LOC: HO.HOS 08:23
DX: M77.11 Lateral epicondylitis, right elbow (principal)
CPT/HCPCS: 99203

== ENCOUNTER → 2025-04-25 08:22 | Outpatient (BNVA) | payer OTHER, SELFPAY | DX: M77.11 Lateral epicondylitis, right elbow (principal) | CPT/HCPCS: 99202 ==